=== PATIENT | female | born 1990 | race African-American/Black ===

== ENCOUNTER 2017-12-08 11:02 | Emergency (ER) | payer SELFPAY ==
[2017-12-08 11:16] VITALS: BMI 35.8
[2017-12-08] MEDS ORDERED: SODIUM CHLORIDE 1,000 ML IV STA (11:56)
--- NOTE | 2017-12-08 11:56 | PDOC ---
History of Present Illness - General Chief Complaint: Cold Symptoms Stated Complaint: FEVER, SORE THROAT (32 WKS ) Time Seen by Provider: 12/08/17 11:31 History Source: Patient Exam Limitations: No Limitations - History of Present Illness Initial Comments: 12/08/17 12:29 Pt. is a 27 y/o female with no PMH currently 32 weeks , who presents to the ED today c/o one day of fevers, sore throat, cough. Pt. states that she feels light headed as well. States that she is currently visiting from [facility]. She is unsure if she got her flu shot. Denies abdominal pain/vaginal bleeding. States she has had no complications with the . Denies ear pain, SOB, difficulty breathing, chest pain, palpitations, n/v/d, hematuria, dysuria, urgency, frequency. Past History - Travel Traveled outside of the country in the last 30 days: Yes If so, where?: Traveled to the [place] from [facility] Close contact w/someone who was outside of country & ill: No - Past Medical History Allergies/Adverse Reactions: Allergies Allergy/AdvReac Type Severity Reaction Status Date / Time No Known Allergies Allergy Verified 12/08/17 11:11 Home Medications: Ambulatory Orders Calcium Carbonate [Calcium] 500 mg PO DAILY 11/30/17 Folic Acid 1 mg PO DAILY 11/30/17 Vitamins (Sjr) - 1 tab PO DAILY 11/30/17 Vitamin B Complex [B Complex] 1 each PO DAILY 11/30/17 Nitrofurantoin Monohyd/M-Cryst [Macrobid -] 100 mg PO BID #14 capsule 12/08/17 COPD: No DVT: No - Immunization History Immunization Up to Date: Yes - Suicide/Smoking/Psychosocial Hx Smoking History: Never smoked Information on smoking cessation initiated: No Hx Alcohol Use: No Drug/Substance Use Hx: No Substance Use Type: None Review of Systems - Review of Systems Able to Perform ROS?: Yes Comments:: 12/08/17 12:33 CONSTITUTIONAL: Present: subjective fever, malaise Absent: chills, diaphoresis, generalized weakness, loss of appetite HEENT: Present: sore throat Absent: rhinorrhea, nasal congestion, throat swelling, difficulty swallowing, mouth swelling, ear pain, eye pain, visual Changes CARDIOVASCULAR: Absent: chest pain, loss of consciousness, palpitations, irregular heart rate, peripheral edema RESPIRATORY: Absent: cough, shortness of breath, dyspnea with exertion, orthopnea, wheezing, stridor, hemoptysis GASTROINTESTINAL: Absent: abdominal pain, abdominal distension, nausea, vomiting, diarrhea, constipation, melena, hematochezia GENITOURINARY: Absent: dysuria, frequency, urgency, hesitancy, hematuria, flank pain, genital pain MUSCULOSKELETAL: Absent: myalgia, arthralgia, joint swelling SKIN: Absent: rash, itching, pallor HEMATOLOGIC/IMMUNOLOGIC: Absent: easy bleeding, easy bruising, lymphadenopathy, frequent infections ENDOCRINE: Absent: unexplained weight gain, unexplained weight loss, heat intolerance, cold intolerance NEUROLOGIC: Absent: headache, focal weakness or paresthesias, dizziness, unsteady gait, seizure, mental status changes, bladder or bowel incontinence PSYCHIATRIC: Absent: anxiety, depression, suicidal or homicidal ideation, hallucinations. Is the patient limited Guyanese proficient: No *Physical Exam - Vital Signs Last Vital Signs Temp Pulse Resp BP Pulse Ox 98.7 F 96 H 17 148/86 100 12/08/17 11:12 12/08/17 11:12 12/08/17 11:12 12/08/17 11:12 12/08/17 11:12 - Physical Exam Comments: 12/08/17 12:38 GENERAL: Well developed, well nourished. Awake and alert. No acute distress. HEENT: Normocephalic, atraumatic. PERRLA, EOMI. No conjunctival pallor. Sclera are non- icteric. Moist mucous membranes. Oropharynx with mild erythmea posteriorly. Uvula midline. NECK: Supple. Full ROM. No JVD. Carotid pulses 2+ and symmetric, without bruits. No thyromegaly. No lymphadenopathy. CARDIOVASCULAR: Regular rate and rhythm. No murmurs, rubs, or gallops. Distal pulses are 2+ and symmetric. PULMONARY: No evidence of respiratory distress. Lungs clear to auscultation bilaterally. No wheezing, rales or rhonchi. ABDOMINAL: Soft. Non-tender. Non-distended. No rebound or guarding. No organomegaly. Normoactive bowel sounds. MUSCULOSKELETAL Normal range of motion at all joints. No bony deformities or tenderness. No CVA tenderness. EXTREMITIES: No cyanosis. No clubbing. No edema. No calf tenderness. SKIN: Warm and dry. Normal capillary refill. No rashes. No jaundice. NEUROLOGICAL: Alert, awake, appropriate. Cranial nerves 2-12 intact. No deficits to light touch and temperature in face, upper extremities and lower extremities. No motor deficits in the in face, upper extremities and lower extremities. Normoreflexic in the upper and lower extremities. Normal speech. Toes are down- going bilaterally. Gait is normal without ataxia. PSYCHIATRIC: Cooperative. Good eye contact. Appropriate mood and affect. ED Treatment Course - LABORATORY CBC & Chemistry Diagram: 12/08/17 13:00 12/08/17 13:00 Medical Decision Making - Medical Decision Making 12/08/17 12:39 Pt. is a 27 y/o F 32 weeks who presents to the ED with one day of flu like symptoms. No vaginal bleeding at this time. VVS, pt is afebrile currently. Will r/o influenza, strep throat. 1. CBC, CMP, UA, UC 2. Influenza, Strep 3. IVF, Tylenol 4. Re-evaluate 12/08/17 15:34 Pt. feeling much better after fluids and tylenol. Strep, influenza are negative at this time. UA shows 3+ Leuk Esterase. Lab work is otherwise unremarkable. Will treat with macrobid for asymptomatic bacteuria at this time. Will d/c the pt from the ED at this time. Pt to go to L&D for further monitoring at this time. Pt. feels comfortable with discharge planning. All questions were answered and pt understands all d/c instructions. 12/08/17 21:43 *DC/Admit/Observation/Transfer Diagnosis at time of Disposition: Third trimester , UTI (urinary tract infection) - Discharge Dispostion Disposition: HOME Condition at time of disposition: Stable - Prescriptions Prescriptions: Nitrofurantoin Monohyd/M-Cryst [Macrobid -] 100 mg PO BID #14 capsule - Referrals Referrals: [facility] ([facility]) [Outside] - Patient Instructions Printed Discharge Instructions: DI for Urinary Tract Infection (UTI) Additional Instructions: Activity as tolerated. Stay hydrated. Blood tests are normal, a strep test and a flu test are also negative. A urine test showed possible evidence of an early infection, take Macrobid as prescribed as an antibiotic. Continue your medications as previously prescribed by your physician. You should follow up with your CLIENT RELATIONS SPECIALIST as soon as possible regarding today's emergency department visit. Return to the emergency department for any new or concerning symptoms, particularly cramping or bleeding, severe weakness, fever/chills, difficulty urinating. Return to HR at [address] [place] [address] tomorrow. - Post Discharge Activity
[2017-12-08 13:27] LABS: BASO % 0.2 % (0-2.0); EOS % 2.1 % (0-4.5); HEMATOCRIT 38.1 % (32.4-45.2); HEMOGLOBIN 12.1 GM/dL (10.7-15.3); LYMPH % 35.5 % (8-40); MCH 28.3 pg (25.7-33.7); MCHC 31.7 g/dl (32.0-36.0); MEAN CELL VOLUME 89.2 fl (80-96); MEAN PLT VOLUME 10.6 fl (7.5-11.1); MONO % 8.8 % (3.8-10.2); NEUT % 53.4 % (42.8-82.8); RBC 4.27 M/mm3 (3.60-5.2); RDW 13.8 % (11.6-15.6); WHITE BLOOD COUNT 4.7 K/mm3 (4.0-10.0)
[2017-12-08 13:36] LABS: ALBUMIN 2.8 g/dl (3.4-5.0); ALK PHOS 93 U/L (45-117); ANION GAP 10 (8-16); BILIRUBIN,TOTAL 0.4 mg/dL (0.2-1.0); BLOOD UREA NITROGEN 5 mg/dL (7-18); CALCIUM 8.8 mg/dL (8.5-10.1); CHLORIDE 103 mmol/L (98-107); CO2 23 mmol/L (21-32); CREATININE 0.5 mg/dL (0.55-1.02); GLUCOSE,RANDOM 128 mg/dL (74-106); SGPT/ALT 23 U/L (12-78); SODIUM 136 mmol/L (136-145); TOT PROT 6.6 g/dl (6.4-8.2)
[2017-12-08 13:39] LABS: POTASSIUM 4.8 mmol/L (3.5-5.1); SGOT/AST 27 U/L (15-37)
[2017-12-08 13:45] LABS: URINE APPEARANCE SLCLOUDY; URINE BILIRUBIN NEGATIVE (NEGATIVE); URINE BLOOD NEGATIVE (NEGATIVE); URINE COLOR YELLOW; URINE GLUCOSE (UA) NEGATIVE (NEGATIVE); URINE KETONE NEGATIVE (NEGATIVE); URINE NITRITE NEGATIVE (NEGATIVE); URINE PROTEIN NEGATIVE (NEGATIVE); URINE UROBILINOGEN NEGATIVE mg/dL (0.2-1.0)
[2017-12-08 13:53] LABS: URINE LEUK ESTERASE 3+ (NEGATIVE)
[2017-12-08 13:55] LABS: EPI CELLS MODERATE /HPF (FEW); URINE BACTERIA RARE /hpf (NONE SEEN); URINE MUCUS RARE
[2017-12-08] MEDS ORDERED: ACETAMINOPHEN 325 MG TABLET (FP) PO ONE (14:18)
[2017-12-08] MEDS ORDERED: ACETAMINOPHEN 325 MG TABLET (FP) ONE (14:39)
--- NOTE | 2017-12-08 15:01 | PDOC ---
*Physical Exam - Vital Signs Last Vital Signs Temp Pulse Resp BP Pulse Ox 98.7 F 96 H 17 148/86 100 12/08/17 11:12 12/08/17 11:12 12/08/17 11:12 12/08/17 11:12 12/08/17 11:12 <Carlos Enrique Abrams - Last Filed: 12/08/17 15:06> - Vital Signs Last Vital Signs Temp Pulse Resp BP Pulse Ox 98.7 F 103 H 16 122/81 100 12/08/17 11:12 12/08/17 15:10 12/08/17 15:10 12/08/17 15:10 12/08/17 15:10 <Shirley Ibarra - Last Filed: 12/08/17 15:30> ED Treatment Course - LABORATORY CBC & Chemistry Diagram: 12/08/17 13:00 12/08/17 13:00 - ADDITIONAL ORDERS Additional order review: Laboratory Results 12/08/17 12/08/17 13:21 13:00 Sodium 136 Potassium 4.8 Chloride 103 Carbon Dioxide 23 Anion Gap 10 BUN 5 L Creatinine 0.5 L Creat Clearance w eGFR > 60 Random Glucose 128 H Calcium 8.8 Total Bilirubin 0.4 AST 27 ALT 23 Alkaline Phosphatase 93 Total Protein 6.6 Albumin 2.8 L Urine Color Yellow Urine Appearance Slcloudy Urine pH 7.0 Ur Specific [place] 1.011 Urine Protein Negative Urine Glucose (UA) Negative Urine Ketones Negative Urine Blood Negative Urine Nitrite Negative Urine Bilirubin Negative Urine Urobilinogen Negative Ur Leukocyte Esterase 3+ H Urine WBC (Auto) 5 Urine RBC (Auto) 3 Ur Epithelial Cells Moderate Urine Bacteria Rare Urine Mucus Rare 12/08/17 14:15 Influenza Types A,B Antigen (ERNESTINE) - Final Nasopharyngeal Swab - Final 12/08/17 11:56 Group A Strep Rapid Antigen - Final Throat 12/08/17 13:00 RBC 4.27 MCV 89.2 MCHC 31.7 L RDW 13.8 MPV 10.6 Neutrophils % 53.4 Lymphocytes % 35.5 Monocytes % 8.8 Eosinophils % 2.1 Basophils % 0.2 - Medications Given in the ED: ED Medications Discontinued Medications Generic Name Dose Route Start Last Admin Trade Name Freq PRN Reason Stop Dose Admin Sodium Chloride 1,000 mls @ 1,000 mls/hr 12/08/17 11:56 12/08/17 13:32 Normal Saline - IV 12/08/17 12:55 1,000 mls/hr ASDIR STA Administration <Carlos Enrique Abrams - Last Filed: 12/08/17 15:06> - LABORATORY CBC & Chemistry Diagram: 12/08/17 13:00 12/08/17 13:00 - ADDITIONAL ORDERS Additional order review: Laboratory Results 12/08/17 12/08/17 13:21 13:00 Sodium 136 Potassium 4.8 Chloride 103 Carbon Dioxide 23 Anion Gap 10 BUN 5 L Creatinine 0.5 L Creat Clearance w eGFR > 60 Random Glucose 128 H Calcium 8.8 Total Bilirubin 0.4 AST 27 ALT 23 Alkaline Phosphatase 93 Total Protein 6.6 Albumin 2.8 L Urine Color Yellow Urine Appearance Slcloudy Urine pH 7.0 Ur Specific [place] 1.011 Urine Protein Negative Urine Glucose (UA) Negative Urine Ketones Negative Urine Blood Negative Urine Nitrite Negative Urine Bilirubin Negative Urine Urobilinogen Negative Ur Leukocyte Esterase 3+ H Urine WBC (Auto) 5 Urine RBC (Auto) 3 Ur Epithelial Cells Moderate Urine Bacteria Rare Urine Mucus Rare 12/08/17 14:15 Influenza Types A,B Antigen (ERNESTINE) - Final Nasopharyngeal Swab - Final 12/08/17 11:56 Group A Strep Rapid Antigen - Final Throat 12/08/17 13:00 RBC 4.27 MCV 89.2 MCHC 31.7 L RDW 13.8 MPV 10.6 Neutrophils % 53.4 Lymphocytes % 35.5 Monocytes % 8.8 Eosinophils % 2.1 Basophils % 0.2 - Medications Given in the ED: ED Medications Discontinued Medications Generic Name Dose Route Start Last Admin Trade Name Rebeca PRN Reason Stop Dose Admin Acetaminophen 650 mg 12/08/17 14:18 12/08/17 15:02 Tylenol - PO 12/08/17 14:19 650 mg ONCE ONE Administration Sodium Chloride 1,000 mls @ 1,000 mls/hr 12/08/17 11:56 12/08/17 13:32 Normal Saline - IV 12/08/17 12:55 1,000 mls/hr ASDIR STA Administration <Shirley Ibarra - Last Filed: 12/08/17 15:30> Medical Decision Making - Medical Decision Making 12/08/17 15:00 Patient seen and evaluated with the nurse practitioner. I agree with the overall evaluation, assessment, and management with the following summary of visit: 27-year-old female at 32 weeks gestation presents with sore throat, URI symptoms , malaise. No APPIAN DEVELOPER complaints low-dose/cramping/bleeding. Strep and flu negative Labs normal Urinalysis with elevated leuk esterase, will treat empirically To L&D for monitoring 12/08/17 15:14 rpt BP in ED 122/81. signout given to L+D, will proceed directly there and dispo accordingly. <Carlos Enrique Abrams - Last Filed: 12/08/17 15:06> *DC/Admit/Observation/Transfer <Carlos Enrique Abrams - Last Filed: 12/08/17 15:06> <Shirley Ibarra - Last Filed: 12/08/17 15:30> Diagnosis at time of Disposition: Third trimester UTI (urinary tract infection) Qualifiers: Urinary tract infection type: acute cystitis Hematuria presence: without hematuria Qualified Code(s): N30.00 - Acute cystitis without hematuria - Discharge Dispostion Disposition: HOME Condition at time of disposition: Stable - Prescriptions Prescriptions: Nitrofurantoin Monohyd/M-Cryst [Macrobid -] 100 mg PO BID #14 capsule - Referrals Referrals: Dakota Hernandez MD [Staff Physician] - - Patient Instructions Printed Discharge Instructions: DI for Urinary Tract Infection (UTI) Additional Instructions: You will go directly to labor and delivery for monitoring. Activity as tolerated. Stay hydrated. Blood tests are normal, a strep test and a flu test are also negative. A urine test showed possible evidence of an early infection, take Macrobid as prescribed as an antibiotic. Continue your medications as previously prescribed by your physician. You should follow up with your RESIDENTIAL APPLIANCE REPAIR TECHNICIAN as soon as possible regarding today's emergency department visit. Return to the emergency department for any new or concerning symptoms, particularly cramping or bleeding, severe weakness, fever/chills, difficulty urinating.
[2017-12-08 15:02] LABS: PLATELET COUNT 120 K/MM3 (134-434)
[2017-12-08 16:39] VITALS: TEMP 98.4
[2017-12-08 17:45] VITALS: BP 130/78; PULSE 92
== END 2017-12-08 15:58 | disposition home or self-care (01) ==
LOC: JER 11:02
PROC: 3E0337Z Introduction of Electrolytic and Water Balance Substance into Peripheral Vein, Percutaneous Approach (ICD-10-PCS; principal; 2017-12-08)
DX: O26.893 Other specified pregnancy related conditions, third trimester (principal); O23.43 Unspecified infection of urinary tract in pregnancy, third trimester; Z3A.32 32 weeks gestation of pregnancy
CPT/HCPCS: 36415; 80053; 81003; 81015; 85025; 87070; 87430; 87804; 99283-25